=== PATIENT | female | born 1970 | race Caucasian/White ===

== ENCOUNTER 2021-07-16 12:58 | Emergency (ER) | payer OTHER ==
[~2021-07-16 12:58] MED LIST: ASPIRIN 325MG325 MG PO; LISINOPRIL10 MG PO; LOPRESSOR 50 MG50 MG PO
[2021-07-16 16:05] LABS: HEMOGLOBIN 18.4 gm/dl (12.3-15.3); RED BLOOD COUNT 5.6 M/UL (4.00-5.10); WHITE BLOOD COUNT 8.7 K/UL (4.5-11.0)
[2021-07-16 16:40] LABS: BUN/CREATININE RATIO 13 (0-10)
== END 2021-07-16 19:15 | disposition home or self-care (01) ==
LOC: ER1 12:58
PROVIDERS: Nurse Practitioner
DX: L02.219 Cutaneous abscess of trunk, unspecified (principal); I10 Essential (primary) hypertension; F17.210 Nicotine dependence, cigarettes, uncomplicated; Z88.0 Allergy status to penicillin
CPT/HCPCS: 80053; 83605; 85025; 86140; 99283; Q9967